=== PATIENT | male | born 1960 | race Caucasian/White ===

== ENCOUNTER 2019-10-20 10:44 | Outpatient (CLI) | payer OTHER ==
[~2019-10-20 10:44] MED LIST: AMLO-93 PO; FINA5TAB11 PO; NITR0.4T51 SL
[2019-10-20 11:57] LABS: BASOPHILS % (AUTO) 0.5 % (0-1); EOSINOPHILS # (AUTO) 0.1 X10'3 (0-0.9); EOSINOPHILS % (AUTO) 1.2 % (0-6); HEMOGLOBIN 15.1 g/dl (14.0-17.9); LYMPHOCYTES % (AUTO) 20.5 % (21-51); MEAN CORPUSCULAR HEMOGLOBIN 29.7 PG (27.0-31.0); MEAN CORPUSCULAR HGB CONC 33.5 g/dL (33.0-36.5); MEAN CORPUSCULAR VOLUME 88.4 FL (78-98); MEAN PLATELET VOLUME 9.5 FL (7.4-10.4); MONOCYTES % (AUTO) 10.7 % (2-12); NEUTROPHILS # (AUTO) 6.4 X10'3 (1.8-7.7); NEUTROPHILS % (AUTO) 67.1 % (42-75); PLATELET COUNT 238 X10'3 (140-440); RED BLOOD COUNT 5.08 X10'6 (4.70-6.10); WHITE BLOOD COUNT 9.5 X10'3 (4.5-11.0)
[2019-10-20 12:01] LABS: ALANINE AMINOTRANSFERASE 32 U/L (12-78); ALBUMIN 3.6 G/DL (3.4-5.0); ALBUMIN/GLOBULIN RATIO 0.9 (1.1-1.5); ALKALINE PHOSPHATASE 88 IU/L (46-116); ANION GAP 6 (8-16); ASPARTATE AMINO TRANSFERASE 23 U/L (10-37); BILIRUBIN,TOTAL 0.3 MG/DL (0.1-1.0); BLOOD UREA NITROGEN 19 MG/DL (7-18); CALCIUM 9.1 MG/DL (8.5-10.1); CHLORIDE 106 MMOL/L (99-107); CHOLESTEROL 156 MG/DL (0-200); GLUCOSE 108 MG/DL (70-104); HDL CHOLESTEROL 39 MG/DL (35-60); LDL CHOLESTEROL 109 MG/DL (50-100); SODIUM 141 MMOL/L (135-145); TOTAL CARBON DIOXIDE 28.9 MMOL/L (24-32); TOTAL PROTEIN 7.8 G/DL (6.4-8.2); TRIGLYCERIDES 119 MG/DL (20-135); eGFR 77 ML/MIN
[2019-10-21 08:10] LABS: % FREE PSA 30.6 % (.); PSA, FREE 2.54 ng/mL
== END 2019-10-20 23:59 | disposition home or self-care (01) ==
LOC: LAB 10:44
PROVIDERS: ATTEND Family Medicine
DX: N40.0 Benign prostatic hyperplasia without lower urinary tract symptoms (principal); N41.1 Chronic prostatitis; I10 Essential (primary) hypertension; F43.9 Reaction to severe stress, unspecified; I49.9 Cardiac arrhythmia, unspecified; E78.5 Hyperlipidemia, unspecified; R53.83 Other fatigue; Z76.89 Persons encountering health services in other specified circumstances
CPT/HCPCS: 36415; 80053; 80061; 84153; 84154; 84439; 84443; 85025

== ENCOUNTER 2020-06-16 16:11 | Inpatient (IN) | payer BC, OTHER ==
[~2020-06-16] VITALS: Ht 177.8 cm; Wt 109.9 kg
[2020-06-16] MEDS ORDERED: LISI-600 PO (16:24)
[2020-06-16] MEDS ORDERED: FLO0.4C PO (16:24)
[2020-06-16] MEDS ORDERED: CefTRIAXone 2gm/D5W 50ml 50 ML IV ONE (17:35)
[2020-06-16 17:46] LABS: BASOPHILS # (AUTO) 0.1 X10'3 (0-0.2); BASOPHILS % (AUTO) 0.2 % (0-1); EOSINOPHILS # (AUTO) 0.1 X10'3 (0-0.9); EOSINOPHILS % (AUTO) 0.3 % (0-6); HEMATOCRIT 41.5 % (42.0-52.0); HEMOGLOBIN 13.5 g/dl (14.0-17.9); LYMPHOCYTES % (AUTO) 3.6 % (21-51); MEAN CORPUSCULAR HEMOGLOBIN 28.9 PG (27.0-31.0); MEAN CORPUSCULAR HGB CONC 32.4 g/dL (33.0-36.5); MEAN CORPUSCULAR VOLUME 89.1 FL (78-98); MEAN PLATELET VOLUME 9.3 FL (7.4-10.4); MONOCYTES # (AUTO) 1.5 X10'3 (0-0.9); MONOCYTES % (AUTO) 5.5 % (2-12); NEUTROPHILS # (AUTO) 24.7 X10'3 (1.8-7.7); NEUTROPHILS % (AUTO) 90.4 % (42-75); PLATELET COUNT 224 X10'3 (140-440); RED BLOOD COUNT 4.65 X10'6 (4.70-6.10); RED CELL DISTRIBUTION WIDTH 14.2 % (11.5-14.5)
[2020-06-16 17:49] LABS: WHITE BLOOD COUNT 27.4 X10'3 (4.5-11.0)
[2020-06-16 17:55] LABS: COLOR,URINE YELLOW (Yellow); GLUCOSE, URINE NEGATIVE (Neg); KETONES,URINE NEGATIVE (Neg); LEUKOCYTE ESTERASE ,URINE NEGATIVE (Neg); NITRITES, URINE NEGATIVE (Neg); OCCULT BLOOD,URINE TRACE-LYSED (Neg); PH,URINE 5.5 (4.8-8.0); PROTEIN,URINE NEGATIVE (Neg); UROBILINOGEN,URINE 0.2 E.U/dL (0.2-1.0)
[2020-06-16 17:56] LABS: UA COLLECTION TYPE URINAL
[2020-06-16 17:57] LABS: ALANINE AMINOTRANSFERASE 25 U/L (12-78); ALBUMIN 3.6 G/DL (3.4-5.0); ALBUMIN/GLOBULIN RATIO 0.9 (1.1-1.5); ALKALINE PHOSPHATASE 87 IU/L (46-116); ANION GAP 6 (8-16); ASPARTATE AMINO TRANSFERASE 18 U/L (10-37); BILIRUBIN,TOTAL 0.3 MG/DL (0.1-1.0); BLOOD UREA NITROGEN 20 MG/DL (7-18); BUN/CREATININE RATIO 20.2 (5.4-32.0); CALCIUM 9.5 MG/DL (8.5-10.1); CHLORIDE 106 MMOL/L (99-107); CREATININE 0.99 MG/DL (0.60-1.10); GLUCOSE 139 MG/DL (70-104); POTASSIUM 4.4 MMOL/L (3.5-5.1); SODIUM 139 MMOL/L (135-145); TOTAL CARBON DIOXIDE 26.6 MMOL/L (24-32); TOTAL PROTEIN 7.7 G/DL (6.4-8.2); eGFR 78 ML/MIN
[2020-06-16 18:04] LABS: CLARITY,URINE SLIGHTLY CLOUDY (Clear)
[2020-06-16 18:07] LABS: BACTERIA,URINE NONE SEEN /HPF (Neg); HYALINE CASTS 0-3 /LPF (NEGATIVE); MUCUS STRANDS FEW /LPF (Neg); RBC,URINE 0-2 /HPF (0-2); SQUAMOUS EPITHELIAL CELL,UR FEW /LPF (FEW)
[2020-06-16 18:18] LABS: LARGE PLATELETS FEW; PLATELET ESTIMATE NORMAL; TOTAL CELLS COUNTED 100
[2020-06-16] MEDS ORDERED: normal saline 1000ML IV soln IVB ONE ×2 (18:25→19:00)
[2020-06-16] MEDS ORDERED: CefTRIAXone inj 2,000 MG in normal saline 100ml IV soln 100 ML IV ONE (18:30)
[2020-06-16] MEDS ORDERED: levoFLOXACIN-Levaquin 500mg/D5 100 ML IV ONE (19:10)
[2020-06-16] MEDS ORDERED: acetaminophen 325mg tablet PO ONE (19:20)
[2020-06-16] MEDS ORDERED: mag hydrox/Alum hydrox/simeth 30ml oral suspension PO PRN (19:25)
[2020-06-16] MEDS ORDERED: magnesium hydroxide 30ml (MOM) UD suspension PO PRN (19:25)
[2020-06-16] MEDS ORDERED: nitroGLYCERIN 0.4mg SUBLingual tab SL PRN (19:30)
--- NOTE | 2020-06-16 21:00 | NUR ---
received report from ER nurse, Cap
--- NOTE | 2020-06-16 21:05 | NUR ---
Arrived via WC and ambulated to bed with minimal assistance. Call light and items of frequent use within reach. Will admit.
[2020-06-16 21:15] VITALS: BP 133/59
[2020-06-16] MEDS: normal saline 1000ml 1,000 ML IV SCH (21:15)
[2020-06-16] MEDS: heparin, porcine 5000 units/ml vial SQ SCH (22:39)
[2020-06-16 23:30] VITALS: BP 103/59
[2020-06-17] MEDS: normal saline 1000ml 1,000 ML IV SCH ×2 (05:55→17:10)
[2020-06-17] MEDS: acetaminophen 325mg tablet PO PRN (05:57)
[2020-06-17 06:10] LABS: BASOPHILS % (AUTO) 0.1 % (0-1); EOSINOPHILS % (AUTO) 0.1 % (0-6); HEMATOCRIT 37.4 % (42.0-52.0); HEMOGLOBIN 12.2 g/dl (14.0-17.9); LYMPHOCYTES # (AUTO) 1.8 X10'3 (1.1-4.8); LYMPHOCYTES % (AUTO) 5.6 % (21-51); MEAN CORPUSCULAR HEMOGLOBIN 29.2 PG (27.0-31.0); MEAN CORPUSCULAR HGB CONC 32.6 g/dL (33.0-36.5); MEAN CORPUSCULAR VOLUME 89.5 FL (78-98); MEAN PLATELET VOLUME 9.7 FL (7.4-10.4); MONOCYTES # (AUTO) 2.1 X10'3 (0-0.9); MONOCYTES % (AUTO) 6.5 % (2-12); NEUTROPHILS # (AUTO) 28.5 X10'3 (1.8-7.7); NEUTROPHILS % (AUTO) 87.7 % (42-75); PLATELET COUNT 188 X10'3 (140-440); RED BLOOD COUNT 4.18 X10'6 (4.70-6.10); RED CELL DISTRIBUTION WIDTH 13.9 % (11.5-14.5)
[2020-06-17 06:15] LABS: WHITE BLOOD COUNT 32.5 X10'3 (4.5-11.0)
[2020-06-17 06:31] LABS: ALANINE AMINOTRANSFERASE 27 U/L (12-78); ALBUMIN 2.8 G/DL (3.4-5.0); ALBUMIN/GLOBULIN RATIO 0.8 (1.1-1.5); ALKALINE PHOSPHATASE 73 IU/L (46-116); ANION GAP 10 (8-16); ASPARTATE AMINO TRANSFERASE 23 U/L (10-37); BILIRUBIN,TOTAL 0.7 MG/DL (0.1-1.0); BLOOD UREA NITROGEN 15 MG/DL (7-18); CALCIUM 8.2 MG/DL (8.5-10.1); CHLORIDE 109 MMOL/L (99-107); GLUCOSE 151 MG/DL (70-104); POTASSIUM 4.2 MMOL/L (3.5-5.1); SODIUM 140 MMOL/L (135-145); TOTAL CARBON DIOXIDE 20.9 MMOL/L (24-32); TOTAL PROTEIN 6.4 G/DL (6.4-8.2); eGFR 77 ML/MIN
--- NOTE | 2020-06-17 06:47 | NUR ---
Patient in room [facility]. I have received report from Catherine RN and had the opportunity to ask questions and assume patient care. Pt in bed states " i can't get comfortable." WBC 32.5, aware.
[2020-06-17 06:48] LABS: PLATELET ESTIMATE NORMAL; TOTAL CELLS COUNTED 100
[2020-06-17 07:00] VITALS: BP 99/53
[2020-06-17] MEDS: HYDROcodone/acetaminophen 5mg/325mg tablet PO PRN ×3 (07:24→19:44)
[2020-06-17] MEDS: heparin, porcine 5000 units/ml vial SQ SCH ×2 (07:25→19:45)
[2020-06-17] MEDS: levoFLOXACIN-Levaquin 500mg/D5 100 ML IV SCH (07:26)
[2020-06-17] MEDS ORDERED: tamsulosin 0.4mg capsule PO SCH (08:00)
[2020-06-17] MEDS: lisinopril 20mg tablet PO SCH (08:00)
--- NOTE | 2020-06-17 11:10 | NUR ---
Lisinopril held BP 98/53. Dr Bonds informed.
[2020-06-17 11:33] VITALS: BP 102/63
--- NOTE | 2020-06-17 14:49 | NUR ---
Bladder scan Post residual void 249ml. pt states feeling pressure. Dr. Hurley informed.
--- NOTE | 2020-06-17 16:10 | NUR ---
Re-checked bladder scan PRV 208ml. Dr Hurley contacted. Will continue to monitor pt. if PRV is greater than 300ml please inform MD for possible Ruvalcaba cath placement.
[2020-06-17 18:00] VITALS: BP 130/51
--- NOTE | 2020-06-17 18:30 | NUR ---
Problems reprioritized. Patient report given, questions answered & plan of care reviewed with JOLANTA Davison.
[2020-06-17] MEDS: tamsulosin 0.4mg capsule PO SCH (22:33)
[2020-06-18 00:30] VITALS: BP 113/48
[2020-06-18] MEDS: acetaminophen 325mg tablet PO PRN ×3 (05:20→22:44)
[2020-06-18 05:49] LABS: ALANINE AMINOTRANSFERASE 25 U/L (12-78); ALBUMIN 2.6 G/DL (3.4-5.0); ALBUMIN/GLOBULIN RATIO 0.7 (1.1-1.5); ALKALINE PHOSPHATASE 66 IU/L (46-116); ANION GAP 10 (8-16); ASPARTATE AMINO TRANSFERASE 17 U/L (10-37); BILIRUBIN,TOTAL 0.5 MG/DL (0.1-1.0); BLOOD UREA NITROGEN 13 MG/DL (7-18); BUN/CREATININE RATIO 12.3 (5.4-32.0); CALCIUM 8.4 MG/DL (8.5-10.1); CHLORIDE 103 MMOL/L (99-107); CREATININE 1.06 MG/DL (0.60-1.10); GLUCOSE 127 MG/DL (70-104); POTASSIUM 3.9 MMOL/L (3.5-5.1); SODIUM 137 MMOL/L (135-145); TOTAL CARBON DIOXIDE 23.9 MMOL/L (24-32); TOTAL PROTEIN 6.6 G/DL (6.4-8.2); eGFR 72 ML/MIN
[2020-06-18] MEDS: HYDROcodone/acetaminophen 5mg/325mg tablet PO PRN (06:03)
[2020-06-18 06:15] LABS: BASOPHILS % (AUTO) 0.1 % (0-1); EOSINOPHILS % (AUTO) 0.1 % (0-6); HEMATOCRIT 36.2 % (42.0-52.0); HEMOGLOBIN 11.9 g/dl (14.0-17.9); LYMPHOCYTES # (AUTO) 1.2 X10'3 (1.1-4.8); LYMPHOCYTES % (AUTO) 6.1 % (21-51); MEAN CORPUSCULAR HEMOGLOBIN 28.9 PG (27.0-31.0); MEAN CORPUSCULAR HGB CONC 32.8 g/dL (33.0-36.5); MEAN CORPUSCULAR VOLUME 88.1 FL (78-98); MEAN PLATELET VOLUME 9.9 FL (7.4-10.4); MONOCYTES # (AUTO) 1.3 X10'3 (0-0.9); MONOCYTES % (AUTO) 6.4 % (2-12); NEUTROPHILS # (AUTO) 17.6 X10'3 (1.8-7.7); NEUTROPHILS % (AUTO) 87.3 % (42-75); PLATELET COUNT 162 X10'3 (140-440); RED CELL DISTRIBUTION WIDTH 14.3 % (11.5-14.5); WHITE BLOOD COUNT 20.2 X10'3 (4.5-11.0)
--- NOTE | 2020-06-18 06:27 | NUR ---
Problems reprioritized. Patient report given, questions answered & plan of care reviewed with JOLANTA Wilson.
--- NOTE | 2020-06-18 06:39 | NUR ---
Patient in room [facility]. I have received report from JOLANTA Davison and had the opportunity to ask questions and assume patient care.
[2020-06-18 07:00] VITALS: BP 139/51
[2020-06-18] MEDS: tamsulosin 0.4mg capsule PO SCH ×2 (07:51→20:19)
[2020-06-18] MEDS: levoFLOXACIN-Levaquin 500mg/D5 100 ML IV SCH (07:51)
[2020-06-18] MEDS: lisinopril 20mg tablet PO SCH (07:52)
[2020-06-18] MEDS: heparin, porcine 5000 units/ml vial SQ SCH ×2 (07:52→20:21)
[2020-06-18 11:00] VITALS: BP 152/57
--- NOTE | 2020-06-18 11:40 | NUR ---
Post void residual 164ml.
[2020-06-18] MEDS: ondansetron/PF 4mg/2ml inj IV PRN ×2 (13:09→20:26)
[2020-06-18] MEDS: normal saline 1000ml 1,000 ML IV SCH (13:09)
[2020-06-18] MEDS: HYDROcodone/acetaminophen 10/325mg tab PO PRN ×2 (14:52→20:26)
[2020-06-18 18:00] VITALS: BP 122/40
--- NOTE | 2020-06-18 18:31 | NUR ---
Problems reprioritized. Patient report given, questions answered & plan of care reviewed with JOLANTA Davison.
[2020-06-18] MEDS: lactobacillus rhamnosus 10,000 MMU CELLS/CAPSULE PO SCH (20:19)
[2020-06-18] MEDS: ibuprofen tablet 400 MG TABLET PO PRN (20:29)
--- NOTE | 2020-06-18 20:31 | NUR ---
MOTRIN GIVEN FOR FEVER Addendum: 06/18/20 at 2030 by Saman Baltazar RN Amended: Links added.
--- NOTE | 2020-06-18 22:06 | NUR ---
2029 While giving patient medications, the patient started shivering, I asked if he felt like he was feverish. He told me that he did feel like he was running a temperature. I took his temperature and it was 101.9 axillary. Motrin was given. 2129 a re check was done and his temp was elevated to 103.[address] Farooq was notified, stat blood cultures were ordered. I will continue to monitor.
--- NOTE | 2020-06-18 22:28 | NUR ---
Patient is off to CT,
--- NOTE | 2020-06-18 22:36 | NUR ---
Patient is back from CT
[2020-06-19] VITALS: BP 130/55
[2020-06-19 05:42] LABS: ANION GAP 8 (8-16); BLOOD UREA NITROGEN 18 MG/DL (7-18); BUN/CREATININE RATIO 18.9 (5.4-32.0); CHLORIDE 105 MMOL/L (99-107); CREATININE 0.95 MG/DL (0.60-1.10); GLUCOSE 122 MG/DL (70-104); POTASSIUM 3.6 MMOL/L (3.5-5.1); SODIUM 138 MMOL/L (135-145); TOTAL CARBON DIOXIDE 25.1 MMOL/L (24-32)
[2020-06-19 05:43] LABS: ALANINE AMINOTRANSFERASE 22 U/L (12-78); ALBUMIN 2.5 G/DL (3.4-5.0); ALBUMIN/GLOBULIN RATIO 0.6 (1.1-1.5); ALKALINE PHOSPHATASE 65 IU/L (46-116); ASPARTATE AMINO TRANSFERASE 22 U/L (10-37); BILIRUBIN,TOTAL 0.4 MG/DL (0.1-1.0); CALCIUM 8.2 MG/DL (8.5-10.1); TOTAL PROTEIN 6.5 G/DL (6.4-8.2); eGFR 81 ML/MIN
[2020-06-19 05:49] LABS: BASOPHILS % (AUTO) 0.2 % (0-1); EOSINOPHILS % (AUTO) 0.2 % (0-6); HEMATOCRIT 36.2 % (42.0-52.0); HEMOGLOBIN 11.9 g/dl (14.0-17.9); LYMPHOCYTES # (AUTO) 0.8 X10'3 (1.1-4.8); LYMPHOCYTES % (AUTO) 12.4 % (21-51); MEAN CORPUSCULAR HEMOGLOBIN 28.9 PG (27.0-31.0); MEAN CORPUSCULAR HGB CONC 32.9 g/dL (33.0-36.5); MEAN CORPUSCULAR VOLUME 87.8 FL (78-98); MEAN PLATELET VOLUME 9.2 FL (7.4-10.4); MONOCYTES # (AUTO) 0.5 X10'3 (0-0.9); MONOCYTES % (AUTO) 8.2 % (2-12); NEUTROPHILS # (AUTO) 5.2 X10'3 (1.8-7.7); PLATELET COUNT 142 X10'3 (140-440); RED BLOOD COUNT 4.12 X10'6 (4.70-6.10); RED CELL DISTRIBUTION WIDTH 14.4 % (11.5-14.5); WHITE BLOOD COUNT 6.6 X10'3 (4.5-11.0)
--- NOTE | 2020-06-19 06:34 | NUR ---
Problems reprioritized. Patient report given, questions answered & plan of care reviewed with JOLANTA Onofre.
[2020-06-19 07:00] VITALS: BP 114/53
[2020-06-19] MEDS: lactobacillus rhamnosus 10,000 MMU CELLS/CAPSULE PO SCH ×2 (09:04→19:45)
[2020-06-19] MEDS: tamsulosin 0.4mg capsule PO SCH ×2 (09:04→19:45)
[2020-06-19] MEDS: levoFLOXACIN-Levaquin 500mg/D5 100 ML IV SCH (09:04)
[2020-06-19] MEDS: lisinopril 20mg tablet PO SCH (09:10)
[2020-06-19] MEDS: heparin, porcine 5000 units/ml vial SQ SCH ×2 (09:11→19:46)
[2020-06-19] MEDS: normal saline 1000ml 1,000 ML IV SCH (10:37)
[2020-06-19 10:44] VITALS: BP 121/40
[2020-06-19] MEDS: acetaminophen 325mg tablet PO PRN ×2 (10:49→17:41)
[2020-06-19 18:00] VITALS: BP 144/60
--- NOTE | 2020-06-19 18:02 | NUR ---
Patient in room [facility]. I have received report from Saman STOVER and had the opportunity to ask questions and assume patient care. Addendum: 06/19/20 at 1806 by Tera Allred RN this was entered at wrong time, 0630
--- NOTE | 2020-06-19 18:03 | NUR ---
Problems reprioritized. Patient report given, questions answered & plan of care reviewed with Afua STOVER.
--- NOTE | 2020-06-19 18:05 | NUR ---
Patient in room [facility]. I have received report from JOLANTA Vazquez and had the opportunity to ask questions and assume patient care. Patient is A&Ox4, COYLE and appropriate. At this time he has a persistent fever and Tylenol was just given, unit tech has just placed ice packs, I will continue to monitor.
[2020-06-19] MEDS: ibuprofen tablet 400 MG TABLET PO PRN (21:46)
[2020-06-19 23:41] VITALS: BP 140/54
[2020-06-20 05:24] LABS: BASOPHILS % (AUTO) 0.3 % (0-1); EOSINOPHILS # (AUTO) 0.1 X10'3 (0-0.9); HEMOGLOBIN 11.9 g/dl (14.0-17.9); LYMPHOCYTES # (AUTO) 1.4 X10'3 (1.1-4.8); MEAN CORPUSCULAR VOLUME 87.8 FL (78-98); MEAN PLATELET VOLUME 9.4 FL (7.4-10.4); MONOCYTES # (AUTO) 1.2 X10'3 (0-0.9); NEUTROPHILS # (AUTO) 4.4 X10'3 (1.8-7.7); NEUTROPHILS % (AUTO) 61.7 % (42-75); PLATELET COUNT 154 X10'3 (140-440); WHITE BLOOD COUNT 7.2 X10'3 (4.5-11.0)
[2020-06-20 05:41] LABS: ALANINE AMINOTRANSFERASE 24 U/L (12-78); ALBUMIN 2.4 G/DL (3.4-5.0); ALBUMIN/GLOBULIN RATIO 0.6 (1.1-1.5); ALKALINE PHOSPHATASE 61 IU/L (46-116); ANION GAP 8 (8-16); ASPARTATE AMINO TRANSFERASE 21 U/L (10-37); BILIRUBIN,TOTAL 0.3 MG/DL (0.1-1.0); BLOOD UREA NITROGEN 14 MG/DL (7-18); BUN/CREATININE RATIO 16.5 (5.4-32.0); CALCIUM 8.2 MG/DL (8.5-10.1); CHLORIDE 104 MMOL/L (99-107); CREATININE 0.85 MG/DL (0.60-1.10); GLUCOSE 99 MG/DL (70-104); POTASSIUM 3.4 MMOL/L (3.5-5.1); SODIUM 137 MMOL/L (135-145); TOTAL CARBON DIOXIDE 25.2 MMOL/L (24-32); TOTAL PROTEIN 6.5 G/DL (6.4-8.2); eGFR > 90 ML/MIN
[2020-06-20 06:00] VITALS: BP 133/67
--- NOTE | 2020-06-20 06:09 | NUR ---
Problems reprioritized. Patient report given, questions answered & plan of care reviewed with JOLANTA Benitez.
--- NOTE | 2020-06-20 06:54 | NUR ---
Patient in room [facility]. I have received report from miko STOVER and had the opportunity to ask questions and assume patient care.
[2020-06-20] MEDS: heparin, porcine 5000 units/ml vial SQ SCH ×2 (08:00→20:16)
[2020-06-20] MEDS: lactobacillus rhamnosus 10,000 MMU CELLS/CAPSULE PO SCH ×2 (08:16→20:15)
[2020-06-20] MEDS: lisinopril 20mg tablet PO SCH (08:16)
[2020-06-20] MEDS: levoFLOXACIN-Levaquin 500mg/D5 100 ML IV SCH (08:16)
[2020-06-20] MEDS: tamsulosin 0.4mg capsule PO SCH ×2 (08:16→20:15)
[2020-06-20] MEDS ORDERED: potassium Cl 20 mEq SR tablet PO STA (10:12)
[2020-06-20 10:28] LABS: PLATELET ESTIMATE NORMAL; TOTAL CELLS COUNTED 100
[2020-06-20 11:00] VITALS: BP 137/43
[2020-06-20] MEDS ORDERED: iohexol 300mg/ml 100ml inj. ONE (11:51)
[2020-06-20] MEDS: HYDROcodone/acetaminophen 5mg/325mg tablet PO PRN (11:53)
[2020-06-20] MEDS: normal saline 1000ml 1,000 ML IV SCH (15:05)
--- NOTE | 2020-06-20 17:16 | NUR ---
patient appears stable. seen by Dr Hurley, is for repeat CT with contrast. patient temp 0700 98.8, 1100 100.0 medicated with norco as per patient request. Voiding well , refused to have post void scans. All cares given. will continue to monitor.
--- NOTE | 2020-06-20 18:15 | NUR ---
Problems reprioritized. Patient report given, questions answered & plan of care reviewed with Nicole Lino RN.
[2020-06-20 19:09] VITALS: BP 153/73
[2020-06-20] MEDS: HYDROcodone/acetaminophen 10/325mg tab PO PRN (20:23)
[2020-06-20] MEDS: ibuprofen tablet 400 MG TABLET PO PRN (20:23)
[2020-06-21] VITALS: BP 120/59
[2020-06-21] MEDS: normal saline 1000ml 1,000 ML IV SCH (02:02)
[2020-06-21 05:44] LABS: ANION GAP 7 (8-16); BLOOD UREA NITROGEN 17 MG/DL (7-18); BUN/CREATININE RATIO 17.7 (5.4-32.0); CHLORIDE 107 MMOL/L (99-107); CREATININE 0.96 MG/DL (0.60-1.10); GLUCOSE 113 MG/DL (70-104); POTASSIUM 3.9 MMOL/L (3.5-5.1); SODIUM 141 MMOL/L (135-145); TOTAL CARBON DIOXIDE 26.7 MMOL/L (24-32)
[2020-06-21 05:45] LABS: ALANINE AMINOTRANSFERASE 30 U/L (12-78); ALBUMIN 2.6 G/DL (3.4-5.0); ALBUMIN/GLOBULIN RATIO 0.6 (1.1-1.5); ALKALINE PHOSPHATASE 60 IU/L (46-116); ASPARTATE AMINO TRANSFERASE 30 U/L (10-37); BILIRUBIN,TOTAL 0.3 MG/DL (0.1-1.0); CALCIUM 8.2 MG/DL (8.5-10.1); TOTAL PROTEIN 6.8 G/DL (6.4-8.2); eGFR 80 ML/MIN
[2020-06-21 05:50] LABS: EOSINOPHILS # (AUTO) 0.1 X10'3 (0-0.9); EOSINOPHILS % (AUTO) 0.9 % (0-6); HEMOGLOBIN 12.2 g/dl (14.0-17.9); LYMPHOCYTES % (AUTO) 21.7 % (21-51); NEUTROPHILS # (AUTO) 4.2 X10'3 (1.8-7.7)
[2020-06-21 05:54] LABS: BASOPHILS % (AUTO) 0.4 % (0-1); HEMATOCRIT 37.1 % (42.0-52.0); LYMPHOCYTES # (AUTO) 1.6 X10'3 (1.1-4.8); MEAN CORPUSCULAR HEMOGLOBIN 28.7 PG (27.0-31.0); MEAN CORPUSCULAR HGB CONC 32.8 g/dL (33.0-36.5); MEAN CORPUSCULAR VOLUME 87.3 FL (78-98); MONOCYTES # (AUTO) 1.6 X10'3 (0-0.9); MONOCYTES % (AUTO) 21.4 % (2-12); NEUTROPHILS % (AUTO) 55.6 % (42-75); PLATELET COUNT 178 X10'3 (140-440); RED BLOOD COUNT 4.24 X10'6 (4.70-6.10); WHITE BLOOD COUNT 7.6 X10'3 (4.5-11.0)
--- NOTE | 2020-06-21 06:16 | NUR ---
Problems reprioritized. Patient report given, questions answered & plan of care reviewed with JOLANTA Pruitt.
--- NOTE | 2020-06-21 06:19 | NUR ---
Patient in room [facility]. I have received report from JOLANTA Rivera and had the opportunity to ask questions and assume patient care.
[2020-06-21 06:50] LABS: PLATELET ESTIMATE NORMAL; TOTAL CELLS COUNTED 100
[2020-06-21 07:16] VITALS: BP 138/67
[2020-06-21] MEDS: heparin, porcine 5000 units/ml vial SQ SCH (08:00)
[2020-06-21] MEDS: tamsulosin 0.4mg capsule PO SCH (08:05)
[2020-06-21] MEDS: lactobacillus rhamnosus 10,000 MMU CELLS/CAPSULE PO SCH (08:05)
[2020-06-21] MEDS: lisinopril 20mg tablet PO SCH (08:06)
[2020-06-21] MEDS: levoFLOXACIN-Levaquin 500mg/D5 100 ML IV SCH (08:07)
[2020-06-21] MEDS ORDERED: LEVO750T21 PO (09:03)
[2020-06-21] MEDS ORDERED: HYDR-4383 PO (09:03)
[2020-06-21 11:00] VITALS: BP 165/70
--- NOTE | 2020-06-21 12:11 | NUR ---
Patient discharged home and taken from unit via wheelchair with x1 staff. Patient alert, oriented and in no apparent distress at time of discharge. PIV removed with cannula intact. Patient given prescription for [place] to take into pharmacy and a copy was placed in the chart. Levaquin prescription was e-scripted to the pharmacy in [facility] in [place]. Patient was given discharge instructions and was given time for questions and answers. Patient stated an understanding of these instructions.
== END 2020-06-21 11:56 | disposition home or self-care (01) | DRG 728 ==
LOC: ER 16:11 → EEVIPCON 16:11 → UNDOADMIN 19:25 → ED HOLD 19:25 → SUR 3N 21:00
PROVIDERS: ADMIT Internal Medicine; ATTEND Internal Medicine
PROC: BW2G1ZZ Computerized Tomography (CT Scan) of Pelvic Region using Low Osmolar Contrast (ICD-10-PCS; principal; 2020-06-20)
DX: N41.0 Acute prostatitis (principal); D72.829 Elevated white blood cell count, unspecified; I10 Essential (primary) hypertension; K62.89 Other specified diseases of anus and rectum; N40.0 Benign prostatic hyperplasia without lower urinary tract symptoms; Z79.899 Other long term (current) drug therapy
CPT/HCPCS: 36415; 72193; 74176; 80053; 81001; 83605; 84145; 84153; 85025; 87040; 87077; 87081; 87088; 87186; 99285; G0378; J0696; J1644; J1956; J2405; J7030; Q9967

== ENCOUNTER 2020-08-23 11:36 | Outpatient (CLI) | payer BC ==
[~2020-08-23 11:36] MED LIST changes: -AMLO-93 PO; -FINA5TAB11 PO; +FLO0.4C PO; +HYDR-4383 PO; +LISI-600 PO
[2020-08-23 12:15] LABS: BASOPHILS % (AUTO) 0.3 % (0-1); EOSINOPHILS # (AUTO) 0.2 X10'3 (0-0.9); EOSINOPHILS % (AUTO) 1.6 % (0-6); HEMATOCRIT 40.7 % (42.0-52.0); HEMOGLOBIN 13.4 g/dl (14.0-17.9); LYMPHOCYTES % (AUTO) 20.2 % (21-51); MEAN CORPUSCULAR HEMOGLOBIN 29.3 PG (27.0-31.0); MEAN CORPUSCULAR HGB CONC 32.9 g/dL (33.0-36.5); MEAN PLATELET VOLUME 9.1 FL (7.4-10.4); MONOCYTES # (AUTO) 0.8 X10'3 (0-0.9); MONOCYTES % (AUTO) 8.5 % (2-12); NEUTROPHILS # (AUTO) 6.7 X10'3 (1.8-7.7); NEUTROPHILS % (AUTO) 69.4 % (42-75); PLATELET COUNT 236 X10'3 (140-440); RED BLOOD COUNT 4.58 X10'6 (4.70-6.10); RED CELL DISTRIBUTION WIDTH 14.9 % (11.5-14.5); WHITE BLOOD COUNT 9.7 X10'3 (4.5-11.0)
[2020-08-23 12:15] LABS: CLARITY,URINE SLIGHTLY CLOUDY (Clear); COLOR,URINE STRAW (Yellow); GLUCOSE, URINE NEGATIVE (Neg); KETONES,URINE NEGATIVE (Neg); LEUKOCYTE ESTERASE ,URINE NEGATIVE (Neg); NITRITES, URINE NEGATIVE (Neg); OCCULT BLOOD,URINE NEGATIVE (Neg); PH,URINE 5.5 (4.8-8.0); PROTEIN,URINE NEGATIVE (Neg); UROBILINOGEN,URINE 0.2 E.U/dL (0.2-1.0)
[2020-08-23 12:17] LABS: UA COLLECTION TYPE CLN CATCH MIDSTREAM
[2020-08-23 12:23] LABS: MUCUS STRANDS MANY /LPF (Neg); SQUAMOUS EPITHELIAL CELL,UR FEW /LPF (FEW)
[2020-08-23 12:24] LABS: HYALINE CASTS 0-3 /LPF (NEGATIVE)
[2020-08-23 12:26] LABS: BACTERIA,URINE NONE SEEN /HPF (Neg); RBC,URINE 0-2 /HPF (0-2); TRANSITIONAL EPI CELLS,URINE FEW /HPF; WBC,URINE 0-4 /HPF (0-4)
[2020-08-23 12:35] LABS: ALANINE AMINOTRANSFERASE 27 U/L (12-78); ALBUMIN 3.9 G/DL (3.4-5.0); ALKALINE PHOSPHATASE 78 IU/L (46-116); ANION GAP 6 (8-16); ASPARTATE AMINO TRANSFERASE 15 U/L (10-37); BILIRUBIN,TOTAL 0.4 MG/DL (0.1-1.0); BLOOD UREA NITROGEN 14 MG/DL (7-18); BUN/CREATININE RATIO 17.1 (5.4-32.0); CALCIUM 9.1 MG/DL (8.5-10.1); CHLORIDE 107 MMOL/L (99-107); CHOLESTEROL 148 MG/DL (0-200); CREATININE 0.82 MG/DL (0.60-1.10); GLUCOSE 108 MG/DL (70-104); HDL CHOLESTEROL 37 MG/DL (35-60); LDL CHOLESTEROL 101 MG/DL (50-100); POTASSIUM 4.1 MMOL/L (3.5-5.1); SODIUM 142 MMOL/L (135-145); TOTAL CARBON DIOXIDE 29.1 MMOL/L (24-32); TOTAL PROTEIN 7.7 G/DL (6.4-8.2); TRIGLYCERIDES 110 MG/DL (20-135); eGFR > 90 ML/MIN
[2020-08-24 12:13] LABS: % FREE PSA 33.9 % (.); PSA, FREE 2.51 ng/mL
== END 2020-08-23 23:59 | disposition home or self-care (01) ==
LOC: LAB 11:36
PROVIDERS: ATTEND Family Medicine
DX: N41.9 Inflammatory disease of prostate, unspecified (principal); N41.1 Chronic prostatitis; A41.9 Sepsis, unspecified organism
CPT/HCPCS: 36415; 80053; 80061; 81001; 82043; 83036; 84153; 84154; 84439; 84443; 85025

== ENCOUNTER 2021-03-28 14:37 | Outpatient (CLI) | payer BC ==
[~2021-03-28 14:37] MED LIST changes: -LISI-600 PO; +LISI20TA28 PO
== END 2021-03-28 23:59 | disposition home or self-care (01) ==
LOC: RAD 14:37
PROVIDERS: ATTEND Urology
DX: N42.9 Disorder of prostate, unspecified (principal)
CPT/HCPCS: 36415; 84153; 84154

== ENCOUNTER 2021-08-24 08:19 | Outpatient (CLI) | payer BC ==
[2021-08-24 09:37] LABS: HEMATOCRIT 43.3 % (42.0-52.0); HEMOGLOBIN 14.2 g/dl (14.0-17.9); MEAN CORPUSCULAR HEMOGLOBIN 29.5 PG (27.0-31.0); MEAN CORPUSCULAR HGB CONC 32.8 g/dL (33.0-36.5); MEAN CORPUSCULAR VOLUME 89.9 FL (78-98); MEAN PLATELET VOLUME 9.5 FL (7.4-10.4); PLATELET COUNT 250 X10'3 (140-440); RED BLOOD COUNT 4.82 X10'6 (4.70-6.10); RED CELL DISTRIBUTION WIDTH 14.7 % (11.5-14.5); WHITE BLOOD COUNT 9.2 X10'3 (4.5-11.0)
[2021-08-24 10:00] LABS: ALBUMIN 3.7 G/DL (3.4-5.0); ANION GAP 10 (8-16); BLOOD UREA NITROGEN 18 MG/DL (7-18); BUN/CREATININE RATIO 18.6 (5.4-32.0); CALCIUM 9.2 MG/DL (8.5-10.1); CHLORIDE 105 MMOL/L (99-107); CREATININE 0.97 MG/DL (0.60-1.10); GLUCOSE 135 MG/DL (70-104); POTASSIUM 4.9 MMOL/L (3.5-5.1); SODIUM 140 MMOL/L (135-145); TOTAL CARBON DIOXIDE 25.3 MMOL/L (24-32); eGFR 79 ML/MIN
== END 2021-08-24 23:59 | disposition home or self-care (01) ==
LOC: LAB 08:19
DX: Z01.818 Encounter for other preprocedural examination (principal); N40.1 Benign prostatic hyperplasia with lower urinary tract symptoms
CPT/HCPCS: 36415; 80048; 85027; 86885; 86900; 86901; 93005

== ENCOUNTER → 2021-09-02 | Outpatient (CLI) | payer BC | END | disposition home or self-care (01) | LOC: LAB 13:09 | DX: Z01.818 Encounter for other preprocedural examination (principal); N40.1 Benign prostatic hyperplasia with lower urinary tract symptoms | CPT/HCPCS: 87088 ==

== ENCOUNTER 2021-09-13 11:27 | Outpatient (CLI) | payer BC | END 2021-09-13 23:59 | disposition home or self-care (01) | LOC: LAB 11:27 | DX: Z01.812 Encounter for preprocedural laboratory examination (principal); N40.1 Benign prostatic hyperplasia with lower urinary tract symptoms; Z20.822 Contact with and (suspected) exposure to COVID-19 | CPT/HCPCS: 87635; C9803 ==

== ENCOUNTER 2022-02-13 08:45 | Outpatient (CLI) | payer BC ==
[2022-02-14 12:15] LABS: PSA, ULTRASENSITIVE W/O SERIAL 0.423 ng/mL (0.000-4.000)
== END 2022-02-13 23:59 | disposition home or self-care (01) ==
LOC: LAB 08:45
DX: Z12.5 Encounter for screening for malignant neoplasm of prostate (principal); E29.1 Testicular hypofunction
CPT/HCPCS: 36415; 84153; 84402; 84403

== ENCOUNTER 2022-05-19 22:02 | Emergency (ER) | payer BC ==
[~2022-05-19] VITALS: Ht 177.8 cm; Wt 103.6 kg
[2022-05-19] MEDS ORDERED: BEBTELOVIMAB 175 MG/2 ML VIAL IV ONE (22:05)
--- NOTE | 2022-05-19 23:18 | NUR ---
pATIENT HAS RECEIVED IV BEBTELOVIMAB. PATIENT TOLLERATED WELL. GENERAL OBSERVATION OVER THE NEXT HOUR PRIOR TO DISCHARGE.
[2022-05-20 00:06] VITALS: BP 168/75
== END 2022-05-20 00:15 | disposition home or self-care (01) ==
LOC: ER 22:03
DX: U07.1 COVID-19 (principal); R50.9 Fever, unspecified; I10 Essential (primary) hypertension; Z79.899 Other long term (current) drug therapy
CPT/HCPCS: 99283; M0222; Q0222

== ENCOUNTER 2022-11-15 08:52 | Outpatient (CLI) | payer BC ==
[~2022-11-15] VITALS: Ht 177.8 cm; Wt 104.3 kg
[2022-11-15] VITALS (7 sets, daily range): BP systolic 100–136; BP diastolic 56–62
[2022-11-15] MEDS ORDERED: regadenoson 0.4mg/5ml syringe IV ONE (10:15)
[2022-11-15] MEDS ORDERED: regadenoson 0.4mg/5ml syringe IV PRN (10:15)
[2022-11-15] MEDS ORDERED: nitroGLYCERIN 0.4mg SUBLingual tab SL PRN (10:15)
[2022-11-15] MEDS ORDERED: normal saline 500ml IV soln 500 ML IV ONE (10:15)
== END 2022-11-15 23:59 | disposition home or self-care (01) ==
LOC: RAD 08:52
PROVIDERS: ATTEND Internal Medicine Interventional Cardiology
DX: I34.81 Nonrheumatic mitral (valve) annulus calcification (principal); R07.9 Chest pain, unspecified; R00.2 Palpitations
CPT/HCPCS: 78452; 93017; 93306; A9500; J2785; J7040

== ENCOUNTER 2023-04-19 09:54 | Day surgery (SDC) | payer BC ==
[2023-04-12 10:12] LABS: CLARITY,URINE SLIGHTLY CLOUDY (Clear); COLOR,URINE YELLOW (Yellow); GLUCOSE, URINE NEGATIVE (Neg); KETONES,URINE NEGATIVE (Neg); LEUKOCYTE ESTERASE ,URINE TRACE (Neg); NITRITES, URINE NEGATIVE (Neg); OCCULT BLOOD,URINE NEGATIVE (Neg); PROTEIN,URINE TRACE mg/dl (Neg); UROBILINOGEN,URINE 0.2 E.U/dL (0.2-1.0)
[2023-04-12 10:17] LABS: BASOPHILS % (AUTO) 0.5 % (0-1); EOSINOPHILS # (AUTO) 0.2 X10'3 (0-0.9); EOSINOPHILS % (AUTO) 2.1 % (0-6); HEMATOCRIT 46.1 % (42.0-52.0); HEMOGLOBIN 15.3 g/dl (14.0-17.9); LYMPHOCYTES % (AUTO) 22.1 % (21-51); MEAN CORPUSCULAR HEMOGLOBIN 30.4 PG (27.0-31.0); MEAN CORPUSCULAR HGB CONC 33.2 g/dL (33.0-36.5); MEAN CORPUSCULAR VOLUME 91.5 FL (78-98); MONOCYTES # (AUTO) 0.8 X10'3 (0-0.9); MONOCYTES % (AUTO) 9.3 % (2-12); PLATELET COUNT 233 X10'3 (140-440); RED BLOOD COUNT 5.04 X10'6 (4.70-6.10); RED CELL DISTRIBUTION WIDTH 13.6 % (11.5-14.5); WHITE BLOOD COUNT 9.1 X10'3 (4.5-11.0)
[2023-04-12 10:25] LABS: APTT 28 SECONDS (22-32)
[2023-04-12 10:31] LABS: ALBUMIN 3.8 G/DL (3.4-5.0); ANION GAP 6 (8-16); BLOOD UREA NITROGEN 15 MG/DL (7-18); BUN/CREATININE RATIO 15.5 (10.0-20.0); CALCIUM 9.1 MG/DL (8.5-10.1); CHLORIDE 105 MMOL/L (99-107); CREATININE 0.97 MG/DL (0.60-1.10); GLUCOSE 137 MG/DL (70-104); POTASSIUM 4.3 MMOL/L (3.5-5.1); SODIUM 139 MMOL/L (135-145); TOTAL CARBON DIOXIDE 28.1 MMOL/L (24-32); eGFR 79 ML/MIN
[2023-04-12 10:31] LABS: UA COLLECTION TYPE CLN CATCH MIDSTREAM
[2023-04-12 10:33] LABS: BACTERIA,URINE 1+ /HPF (Neg); MUCUS STRANDS MODERATE /LPF (Neg); RBC,URINE NONE SEEN /HPF (0-2); SQUAMOUS EPITHELIAL CELL,UR FEW /LPF (FEW); WBC CLUMPS,URINE FEW /HPF (NEGATIVE); WBC,URINE 50-100 /HPF (0-4)
[2023-04-12 10:34] LABS: SPERM FEW /HPF (NEGATIVE)
[2023-04-19] VITALS (8 sets, daily range): BP systolic 156–172; BP diastolic 70–82
[~2023-04-19] VITALS: Ht 177.8 cm; Wt 106.0 kg
[2023-04-19] MEDS ORDERED: normal saline 1000ml 1,000 ML IV SCH (10:16)
[2023-04-19] MEDS ORDERED: cefazolin 2gm/D5W 100mL 100 ML IV ONE (10:17)
[2023-04-19] MEDS ORDERED: TRIA50CA2 PO (10:20)
[2023-04-19] MEDS ORDERED: fentaNYL/PF 50MCG/1 ML 2ML syringe ONE (13:30)
[2023-04-19] MEDS ORDERED: midazolam 1 mg/ML 2ml injection ONE ×2 (13:30→14:17)
[2023-04-19] MEDS ORDERED: ceFAZolin 1000mg inj ONE (13:30)
[2023-04-19] MEDS ORDERED: LIDOCAINE 2%/EPI 1:100,000 inj. Multi-dose 20 ML VIAL ONE (13:30)
== END 2023-04-19 17:10 | disposition home or self-care (01) ==
LOC: SSTAY O 09:54
PROVIDERS: ATTEND Student in an Organized Health Care Education/Training Program
DX: I44.30 Unspecified atrioventricular block (principal); G47.33 Obstructive sleep apnea (adult) (pediatric); I10 Essential (primary) hypertension; I05.0 Rheumatic mitral stenosis; I25.119 Atherosclerotic heart disease of native coronary artery with unspecified angina pectoris; N40.0 Benign prostatic hyperplasia without lower urinary tract symptoms; Z79.899 Other long term (current) drug therapy; Z79.01 Long term (current) use of anticoagulants
CPT/HCPCS: 33208; 36415; 80048; 81001; 85025; 85610; 85730; 87077; 87088; 93005; 99152; 99153; C1785; C1898; J0690; J2250; J3010; J7030; A6258

== ENCOUNTER 2024-08-14 11:44 | Outpatient (CLI) | payer BC ==
[~2024-08-14 11:44] MED LIST changes: -FLO0.4C PO; -HYDR-4383 PO; +TRIA50CA2 PO
[2024-08-14 12:21] LABS: BASOPHILS % (AUTO) 0.4 % (0-1); EOSINOPHILS # (AUTO) 0.2 X10'3 (0-0.9); EOSINOPHILS % (AUTO) 2.1 % (0-6); HEMATOCRIT 47.1 % (42.0-52.0); HEMOGLOBIN 15.5 g/dl (14.0-17.9); LYMPHOCYTES # (AUTO) 2.2 X10'3 (1.1-4.8); LYMPHOCYTES % (AUTO) 21.1 % (21-51); MEAN CORPUSCULAR HEMOGLOBIN 30.6 PG (27.0-31.0); MEAN CORPUSCULAR HGB CONC 32.8 g/dL (33.0-36.5); MEAN CORPUSCULAR VOLUME 93.1 FL (78-98); MEAN PLATELET VOLUME 8.7 FL (7.4-10.4); MONOCYTES # (AUTO) 0.9 X10'3 (0-0.9); MONOCYTES % (AUTO) 9.1 % (2-12); NEUTROPHILS # (AUTO) 6.9 X10'3 (1.8-7.7); NEUTROPHILS % (AUTO) 67.3 % (42-75); PLATELET COUNT 223 X10'3 (140-440); RED BLOOD COUNT 5.06 X10'6 (4.70-6.10); RED CELL DISTRIBUTION WIDTH 13.4 % (11.5-14.5); WHITE BLOOD COUNT 10.3 X10'3 (4.5-11.0)
[2024-08-14 12:25] LABS: BILIRUBIN,URINE NEGATIVE (Neg); CLARITY,URINE CLEAR (Clear); COLOR,URINE AMBER (Yellow); GLUCOSE, URINE NEGATIVE (Neg); KETONES,URINE NEGATIVE (Neg); LEUKOCYTE ESTERASE ,URINE NEGATIVE (Neg); NITRITES, URINE NEGATIVE (Neg); OCCULT BLOOD,URINE TRACE-INTACT (Neg); PROTEIN,URINE 30 mg/dl (Neg); UROBILINOGEN,URINE 0.2 E.U/dL (0.2-1.0)
[2024-08-14 12:34] LABS: UA COLLECTION TYPE VOIDED
[2024-08-14 12:37] LABS: RBC,URINE 20-50 /HPF (0-2)
[2024-08-14 12:38] LABS: BACTERIA,URINE 1+ /HPF (Neg); MUCUS STRANDS FEW /LPF (Neg); SQUAMOUS EPITHELIAL CELL,UR FEW /LPF (FEW)
[2024-08-14 12:55] LABS: ALANINE AMINOTRANSFERASE 38 U/L (12-78); ALBUMIN 3.7 G/DL (3.4-5.0); ALKALINE PHOSPHATASE 87 IU/L (46-116); ANION GAP 9 (8-16); ASPARTATE AMINO TRANSFERASE 21 U/L (10-37); BILIRUBIN,TOTAL 0.5 MG/DL (0.1-1.0); BLOOD UREA NITROGEN 15 MG/DL (7-18); BUN/CREATININE RATIO 17.4 (10.0-20.0); CALCIUM 9.4 MG/DL (8.5-10.1); CHLORIDE 105 MMOL/L (99-107); CHOL/HDL RATIO 3.9 (0.00-4.99); CHOLESTEROL 197 MG/DL (0-200); CREATININE 0.86 MG/DL (0.60-1.10); FREE T4 (FREE THYROXINE) 1.02 NG/DL (0.73-1.40); GLUCOSE 115 MG/DL (70-104); HDL CHOLESTEROL 50 MG/DL (35-60); LDL CHOLESTEROL 112 MG/DL (50-100); POTASSIUM 4.4 MMOL/L (3.5-5.1); SODIUM 141 MMOL/L (135-145); THYROID STIMULATING HORMONE 1.56 ulU/ml (0.34-4.50); TOTAL CARBON DIOXIDE 27.4 MMOL/L (24-32); TOTAL PROTEIN 7.4 G/DL (6.4-8.2); TRIGLYCERIDES 149 MG/DL (20-135); eGFR 90 ML/MIN
== END 2024-08-14 23:59 | disposition home or self-care (01) ==
LOC: RAD 11:44
PROVIDERS: ATTEND Physician Assistant
DX: Z12.5 Encounter for screening for malignant neoplasm of prostate (principal); R53.83 Other fatigue; R73.03 Prediabetes; E78.5 Hyperlipidemia, unspecified; I10 Essential (primary) hypertension
CPT/HCPCS: 36415; 80053; 80061; 81001; 84153; 84439; 84443; 85025